=== PATIENT | female | born 1960 | race Two or more races ===

== ENCOUNTER 2025-03-29 07:02 | Day surgery (SDC) | payer OTHER, MEDICAID ==
[~2025-03-29] VITALS: Ht 152.4 cm; Wt 67.6 kg
[~2025-03-29 07:02] MED LIST: APPLCAP PO; ATOR10TA PO; BUSP15TA60 PO; CALC-437 OR; CHOL20007 OR; CITA-73 PO; COEN400C8 OR; CYA100I IM; CYCL-837 PO; FOLITAB22 OR; GABA-339 PO; GLUC1TAB22 PO; HYDR1TAB97 PO; MAGN400T48 PO; METH2.5T PO; MILK1000 OR; NAPR-957 PO; OMEP-434 PO
[2025-03-29] MEDS ORDERED: PROPOFOL 10 MG/ML 20 ML IV ONE (08:06)
[2025-03-29] MEDS ORDERED: fentaNYL CITRATE 100 MCG/2 ML VL ONE (08:06)
[2025-03-29] MEDS ORDERED: GLYCOPYRROLATE 0.2 MG/ML 1ML VIAL ONE (08:06)
[2025-03-29] MEDS ORDERED: ONDANSETRON HCL 4 MG/2 ML VIAL ONE (08:06)
[2025-03-29] MEDS ORDERED: LIDOCAINE 2% (LOCAL ANESTH.) PF 5ml SDV ONE (08:06)
--- NOTE | 2025-03-29 08:32 | DVHHP2 ---
GI H&P Pre-Op Assessment Date: 03/29/25 Chief complaint: Heartburn HPI: per clinic note Past medical history: per clinic note Past surgical history: per clinic note Family history: per clinic note Physical exam: General: NAD, AAOX3 HEENT: PERRL, no scleral icterus, normal hearing, gums without lesions or bleeding, oropharynx clear without erythema or exudate. Neck: Supple without enlargement of the thyroid, or lymphadenopathy. Chest: Normal size and shape, no tenderness, lung youngblood clear to auscultation and percussion, nonlabored breathing. Heart: RRR, no murmur Abdomen: non-distended, no tenderness to palpation, +BS, no hepatosplenomegaly Extremities: no edema Neurological: CN II-XII intact, sensation intact in all extremities, 5+ strength in all extremities Skin: No rashes, No jaundice Assessment: - heartburn Plan: - EGD - Risks (bleeding, infection, perforation, reaction to sedation medications and cardiopulmonary arrest) and benefit of the procedure were explained to patient. Patient agrees to undergo the procedure. TIFFANIE HEARD MD March 29, 2025 08:32
[2025-03-29 08:47] VITALS: RESP 15; TEMP 97; O2SAT 99
--- NOTE | 2025-03-29 08:47 | DVHOP2 ---
Operative Report DATE OF OPERATION: 03/29/25 PROCEDURE: Upper Endoscopy. PREOPERATIVE INDICATION: The patient is a 64 -year-old female undergoing endoscopy for heartburn. POSTOPERATIVE DIAGNOSES: 1. Mild gastritis 2. Hiatal hernia 31-37 cm 3. Grade A esophagitis PROCEDURE PERFORMED BY: Winston Sharpe SCOPE: Olympus videoendoscope. ASA CLASS: 2 PREOPERATIVE MEDICATIONS: MAC with Dr Teague PROCEDURE IN DETAIL: After obtaining an informed consent, the patient was placed on left lateral decubitus position. The patient was then sedated with the above medications. A bite block was placed between her teeth. The endoscope was then passed through the oropharynx, into the esophagus, and through the stomach and pylorus up to the second and third part of the duodenum. The duodenum was normal in appearance. There was mild gastritis. Gastric biopsies were obtained using cold forceps. There was hiatal hernia 31-37 cm. The GE junction was at 31 cm. There was grade A esophagitis in the distal esophagus The endoscope was then withdrawn. The patient tolerated the procedure well without difficulty. COMPLICATIONS : None SPECIMENS: Gastric biopsies DISPOSITION: D/C to home PLAN: 1. Await for biopsy result 2. Continue omeprazole. WINSTON SHARPE MD March 29, 2025 08:47
--- NOTE | 2025-03-29 08:48 | DVHDS2 ---
Physician Discharge Progress N Final Diagnosis: Gastritis, hiatal hernia, esophagitis Operations or Procedures: Operations or Procedures EGD with cold forceps biopsies Condition on Discharge: Good Disposition: Home Discharge Instructions: Diet: Regular Activity: No Restrictions, As Tolerated Medications: Resume previous home medications Follow Up Care: Discharge Statement: "Patient was advised to return to the ER or call 911 if any headaches, dizziness, shortness of breath, chest pain, abdominal pain, bleeding, fevers, or worsening of medical condition. Patient was counseled about treatment plan, medications, possible side effects, patientverbalized understanding. All questions were answered to the best of my ability. This discharge took greater then 30 minutes in planning, reviewing documentation, counseling the patient, and discussing with other team members." TIFFANIE HEARD MD March 29, 2025 08:48
[2025-03-29 09:10] VITALS: BP 128/48; PULSE 90; RESP 15; O2SAT 96
== END 2025-03-29 09:20 | disposition home or self-care (01) ==
LOC: GI 07:02
PROVIDERS: ATTEND Internal Medicine Gastroenterology
DX: R12 Heartburn (principal); K29.50 Unspecified chronic gastritis without bleeding; K44.9 Diaphragmatic hernia without obstruction or gangrene; K21.9 Gastro-esophageal reflux disease without esophagitis; K20.90 Esophagitis, unspecified without bleeding; M19.90 Unspecified osteoarthritis, unspecified site; Z79.899 Other long term (current) drug therapy; Z98.891 History of uterine scar from previous surgery; Z98.51 Tubal ligation status; Z98.890 Other specified postprocedural states
CPT/HCPCS: 43239; 88305; 88312; 88342; J2003; J2405; J2704; J3010; J7030